=== PATIENT | female | born 1990 | race Hispanic/Latino ===

== ENCOUNTER → 2025-04-18 | Day surgery (SDC) | payer BC ==
[~2025-04-18] MED LIST: FENTANYL CITRATE/PF 100MCG/2 ML INJ ONE; GAS X PO; MIDAZOLAM HCL 2 MG/2 ML VIAL ONE; PROPOFOL IV EMULSION 10 MG/ML 20 ML VIAL ONE
[2025-04-18] MEDS: LACTATED RINGER'S 1,000 ML ONE (14:20)
[2025-04-18 16:28] VITALS: TEMP 97.5
[2025-04-18 16:50] VITALS: BP 112/76; PULSE 90; RESP 18; O2SAT 100
[2025-04-19 08:58] LABS: CDIFF AG QUIK CHEK NEGATIVE (NEGATIVE); CDIFF TOX QUIK CHEK NEGATIVE (NEGATIVE); WBC,FECAL (FECAL LACTOFERRIN) NEGATIVE (NEGATIVE)
[2025-04-21 09:54] LABS: C-REACTIVE PROTEIN 8 mg/L (0-10)
[2025-04-22 13:12] LABS: ENDOMYSIAL ANTIBODIES, IGA Negative (Negative)
[2025-04-22 14:29] LABS: IMMUNOGLOBULIN A 158 mg/dL (87-352); TISSUE TRANSGLUTAMINASE IGA AB <2 U/mL (0-3)
== END | disposition home or self-care (01) ==
LOC: OR 12:38
PROVIDERS: ATTEND Internal Medicine Gastroenterology
DX: K29.50 Unspecified chronic gastritis without bleeding (principal); K52.9 Noninfective gastroenteritis and colitis, unspecified; K20.90 Esophagitis, unspecified without bleeding; K59.09 Other constipation; K64.8 Other hemorrhoids; Z86.19 Personal history of other infectious and parasitic diseases; Z68.25 Body mass index [BMI] 25.0-25.9, adult; Z71.3 Dietary counseling and surveillance
CPT/HCPCS: 43239; 45380; 81025; 82784; 83516; 83630; 83993; 86140; 86256; 87045; 87177; 87324; 87328; 87449; J2250; J2470; J2704; J3010; J7121